=== PATIENT | male | born 1945 | race Caucasian/White ===

== ENCOUNTER 2019-12-03 14:08 | Emergency (ER) | payer OTHER, MEDICARE, SELFPAY ==
[2019-12-03] VITALS (7 sets, daily range): BP systolic 130–138; BP diastolic 64–84; PULSE 74–87; RESP 17–19; TEMP 36.7; O2SAT 96–99; BMI 30.2
--- NOTE | 2019-12-03 14:14 | RAD_ITS ---
STUDY: X-RAY - RIGHT SHOULDER REASON FOR EXAM: Male, 74 years old. right shoulder pain after a fall today TECHNIQUE: 3 view(s) of the shoulder. COMPARISON: None. FINDINGS: There is anterior and inferior dislocation of the humeral head in relation to the glenoid fossa. Small osteophyte formation of the glenoid. There is degenerative arthrosis of the acromioclavicular joint without inferior osseous spur formation. Normal acromion. Normal humeral head and visualized proximal humerus. The soft tissue structures are unremarkable. Normal visualized pulmonary apex. RAD/Shoulder min 2 Views IMPRESSION: Glenohumeral joint dislocation. Electronically Signed: Miguel Rodgers MD (Brooks) at 14:52 EDT , Service support ,
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
[2019-12-03] MEDS: HYDROmorphone 0.5 MG/0.5 ML SYRINGE IV (14:27)
[2019-12-03] MEDS: Ondansetron 4 MG/2 ML Vial IV (14:27)
[2019-12-03] MEDS: Propofol 200 MG/20 ML Vial IV BOLUS (14:56)
--- NOTE | 2019-12-03 15:02 | RAD_ITS ---
STUDY: X-RAY - RIGHT SHOULDER REASON FOR EXAM: Male, 74 years old. post reduction right shoulder TECHNIQUE: 2 view(s) of the shoulder. COMPARISON: None. FINDINGS: Right shoulder is relocated. There are underlying moderate degenerative changes. Humerus is intact. RAD/Shoulder min 2 Views IMPRESSION: Reduction relocation of the shoulder. Electronically Signed: Anamika Comer, at 15:22 EDT Tel , Service support ,
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
--- NOTE | 2019-12-03 15:16 | ED.DEP ---
ED Disposition - Plan for ED Patient: Instructions: ED Dislocation Shoulder Redu Prescriptions: Hydrocodone Bitart/Apap 5-325 [[place] 5MG-325MG] 1 tab PO Q4H PRN PRN 2 Days #10 tab PRN Reason: Pain Prescription Printed Referrals: [facility] [Primary Care Provider] - Wilmer Porter MD [STAFF PHYSICIAN] - 3-5 Days
== END 2019-12-03 15:50 | disposition home or self-care (01) ==
PROVIDERS: Emergency Provider Physician Assistant Medical
DX: S43.014A Anterior dislocation of right humerus, initial encounter (principal); W01.0XXA Fall on same level from slipping, tripping and stumbling without subsequent striking against object, initial encounter; Y93.89 Activity, other specified; Y92.9 Unspecified place or not applicable; Y99.9 Unspecified external cause status; E11.9 Type 2 diabetes mellitus without complications; I10 Essential (primary) hypertension; E78.5 Hyperlipidemia, unspecified; Z79.84 Long term (current) use of oral hypoglycemic drugs; Z79.899 Other long term (current) drug therapy; Z87.891 Personal history of nicotine dependence
CPT/HCPCS: 23650; 73030; 96374; 96375; 99284; J7030; A4216; J2405

== ENCOUNTER 2021-05-07 10:43 | Outpatient (CLI) | payer MEDICARE, SELFPAY | END 2021-05-07 23:59 | disposition short-term general hospital (02) | LOC: LABSPEC 10:44 | PROVIDERS: Referring Provider Physician Assistant; Visit Provider Physician Assistant | DX: U07.1 COVID-19 (principal) | CPT/HCPCS: 87635; U0003; U0005 ==